=== PATIENT | male | born 1950 | race Caucasian/White ===

== ENCOUNTER 2018-10-02 13:22 | Emergency (ER) | payer OTHER ==
[~2018-10-02] VITALS: Ht 188 cm; Wt 126.1 kg
[~2018-10-02 13:22] MED LIST: ATOR20TA PO; CITA-77 PO; FENO160T8 PO; GEMF600T7 PO; GLIP1TAB38 PO; INSULIN; ISOS20TA49 PO; METF-371 PO; NOR10T PO; PRO20T
[2018-10-02] MEDS ORDERED: SODIUM CHLORIDE 0.9% 1,000 ML IV ONE ×2 (14:23)
[2018-10-02 14:30] LABS: Urine Bacteria NONE SEEN /hpf (None Seen); Urine Blood Negative /uL (Negative); Urine Mucus FEW (None Seen); Urine Specific Gravity 1.032 (1.001-1.035); Urine WBC 1 /hpf (0 - 3)
[2018-10-02] MEDS ORDERED: TAMSULOSIN HYDROCHLORIDE 0.4 MG CAP PO ONE (15:00)
[2018-10-02] MEDS ORDERED: KETOROLAC TROMETH 15 mg/ml 1ML VL IV ONE ×2 (15:00→15:15)
[2018-10-02] MEDS ORDERED: ONDANSETRON HCL 4 MG/2 ML VIAL IV ONE (15:15)
[2018-10-02 15:45] LABS: Basophils # (auto) 0.1 uL; Eosinophils # (auto) 0.1 uL; Lymphocytes % (auto) 18.4 % (10.0-50.0); Mean Corpuscular Volume 86.6 fL (80.0-100.0)
[2018-10-02 15:47] LABS: Eosinophils % (auto) 1.3 % (0.0-7.0); Hematocrit 53.8 % (41.0-53.0); Hemoglobin 18.2 g/dL (13.5-17.5); Lymphocytes # (auto) 1.7 uL; Mean Corpuscular Hemoglobin 29.3 pg (28.0-32.0); Mean Corpuscular Hgb Conc. 33.8 g/dL (32.0-36.0); Monocytes # (auto) 0.6 uL; Monocytes % (auto) 5.9 % (0.0-12.0); Neutrophils % (auto) 73.4 % (37.0-80.0); Nucleated Red Blood Cells % 0.4 %; Platelet Count (auto) 231 10^3/uL (140-450); Red Blood Cells 6.21 10^6/uL (4.5-5.90); White Blood Cell 9.5 10^3/uL (4.4-10.8)
[2018-10-02 16:00] VITALS: BP 132/74
[2018-10-02 16:02] LABS: Albumin 3.2 g/dL (3.4-5.0); Anion Gap 5 (5-15); Blood Urea Nitrogen 10 mg/dL (7-18); Calcium 8.6 mg/dL (8.5-10.1); Carbon Dioxide 27 mmol/L (21-32); Chloride 105 mmol/L (98-107); Glucose 155 mg/dL (74-106); Potassium 3.8 mmol/L (3.5-5.1); Sodium 137 mmol/L (136-145)
[2018-10-02 16:08] LABS: Alanine Aminotransferase 24 U/L (16-61); Alkaline Phosphatase 63 U/L (45-117); Aspartate Aminotransferase 16 U/L (15-37); BUN/Creatinine Ratio 13.3; Bilirubin, Total 0.6 mg/dL (0.2-1.0); GFR African American 133 mL/min; GFR Non-African American 110 mL/min; Total Protein 7.1 g/dL (6.4-8.2)
== END 2018-10-02 17:09 | disposition home or self-care (01) ==
LOC: ER 13:32
DX: E11.65 Type 2 diabetes mellitus with hyperglycemia (principal); E86.0 Dehydration; E78.5 Hyperlipidemia, unspecified; I10 Essential (primary) hypertension; I25.10 Atherosclerotic heart disease of native coronary artery without angina pectoris; Z98.61 Coronary angioplasty status; Z88.8 Allergy status to other drugs, medicaments and biological substances; Z79.899 Other long term (current) drug therapy; Z79.4 Long term (current) use of insulin
CPT/HCPCS: 36415; 74176; 80053; 81001; 84484; 85025; 96361; 96374; 96375; 99284; J1885; J2405; J7030

== ENCOUNTER 2019-08-29 08:28 | Day surgery (SDC) | payer OTHER ==
[~2019-08-29] VITALS: Ht 188 cm; Wt 126.0 kg
[~2019-08-29 08:28] MED LIST changes: +ASPI325T4 PO; -CITA-77 PO; +CLOP75TA28 PO; -FENO160T8 PO; +FURO1TAB33 PO; -GLIP1TAB38 PO; +INSU1INJ14 SC; +LEVEMIR SC; -METF-371 PO; +METF-929 PO; +POTA1TAB61 PO; -PRO20T; +PROP120C42 PO
[2019-08-29] MEDS ORDERED: LIDOCAINE 2%HCL (LOCAL ANESTH.) INJ 20ML MDV ONE (08:56)
[2019-08-29] MEDS ORDERED: IODIXANOL 320MG/ML 100ML BTL IV ONE ×2 (08:56→10:02)
[2019-08-29] MEDS ORDERED: fentaNYL CITRATE 100 MCG/2 ML VL ONE (09:37)
[2019-08-29] MEDS ORDERED: MIDAZOLAM HCL 1MG/1ML-2 ML VIAL ONE ×2 (09:37→10:08)
[2019-08-29] MEDS ORDERED: ANGIOMAX 250 MG VIAL IV ONE ×2 (09:55→10:10)
[2019-08-29] MEDS ORDERED: SODIUM CHL 0.9% 50 ML ONE ×2 (09:55→10:10)
[2019-08-29] MEDS ORDERED: HYDROcodone-ACET 10/325MG TAB PO ONE (11:00)
[2019-08-29] MEDS ORDERED: ACETAMINOPHEN 500 MG TAB PO PRN (11:00)
[2019-08-29] MEDS ORDERED: ONDANSETRON HCL 4 MG/2 ML VIAL IV PRN (11:00)
== END 2019-08-29 13:34 | disposition home or self-care (01) ==
LOC: CATH 08:28
PROVIDERS: ATTEND Internal Medicine
DX: I70.211 Atherosclerosis of native arteries of extremities with intermittent claudication, right leg (principal); I10 Essential (primary) hypertension; E78.5 Hyperlipidemia, unspecified; I25.2 Old myocardial infarction; J44.9 Chronic obstructive pulmonary disease, unspecified; E11.9 Type 2 diabetes mellitus without complications; Z88.8 Allergy status to other drugs, medicaments and biological substances; Z95.5 Presence of coronary angioplasty implant and graft; Z79.82 Long term (current) use of aspirin; Z79.899 Other long term (current) drug therapy; Z98.890 Other specified postprocedural states; Z11.59 Encounter for screening for other viral diseases
CPT/HCPCS: 37228; 75716; C1725; C1760; C1769; C1887; C1894; J0583; J1644; J2250; J3010; J7030; Q9967; U0003; 99152; 99153

== ENCOUNTER 2019-09-26 06:51 | Day surgery (SDC) | payer OTHER ==
[~2019-09-26] VITALS: Ht 190.5 cm; Wt 120.7 kg
[~2019-09-26 06:51] MED LIST changes: -GEMF600T7 PO; -INSULIN
[2019-09-26] MEDS ORDERED: IODIXANOL 320MG/ML 100ML BTL IV ONE ×2 (07:13→07:58)
[2019-09-26] MEDS ORDERED: LIDOCAINE 2%HCL (LOCAL ANESTH.) INJ 20ML MDV ONE (07:13)
[2019-09-26] MEDS ORDERED: ANGIOMAX 250 MG VIAL IV ONE ×2 (07:57→10:15)
[2019-09-26] MEDS ORDERED: MIDAZOLAM HCL 1MG/1ML-2 ML VIAL ONE (07:58)
[2019-09-26] MEDS ORDERED: SODIUM CHL 0.9% 50 ML ONE ×2 (07:58→10:15)
[2019-09-26] MEDS ORDERED: fentaNYL CITRATE 100 MCG/2 ML VL ONE (07:58)
[2019-09-26] MEDS ORDERED: VERAPAMIL 2.5MG/ML INJ 2ML VIAL IV ONE (09:09)
[2019-09-26] MEDS ORDERED: NITROGLYCERIN 50MG/250ML 250 ML IV ONE (09:09)
[2019-09-26] MEDS ORDERED: diphenhdrAMINE HCL 50 MG/1 ML VL ONE (09:47)
[2019-09-26] MEDS ORDERED: ceFAZolin 1GM/50ML 50 ML IV ONE (10:18)
[2019-09-26] MEDS ORDERED: ASPirin 325 MG TAB ONE (10:29)
[2019-09-26] MEDS ORDERED: HYDROmorphone HCL 2 MG/ML VL ONE (10:30)
[2019-11-10] MEDS ORDERED: ASPI-543 PO (16:11)
[2019-11-10] MEDS ORDERED: LOSA25TA38 PO (16:11)
[2019-11-10] MEDS ORDERED: ALBUAER3 IN (16:11)
[2019-11-10] MEDS ORDERED: INSLISPI SC (16:11)
[2019-11-10] MEDS ORDERED: TAMS0.4C36 PO (16:11)
== END 2019-09-26 12:40 | disposition home or self-care (01) ==
LOC: CATH 06:51
PROVIDERS: ATTEND Internal Medicine
DX: I70.212 Atherosclerosis of native arteries of extremities with intermittent claudication, left leg (principal); I10 Essential (primary) hypertension; E78.5 Hyperlipidemia, unspecified; J98.4 Other disorders of lung; I25.2 Old myocardial infarction; F17.210 Nicotine dependence, cigarettes, uncomplicated; E78.00 Pure hypercholesterolemia, unspecified; Z95.5 Presence of coronary angioplasty implant and graft; Z79.899 Other long term (current) drug therapy; Z98.890 Other specified postprocedural states; Z88.0 Allergy status to penicillin; Z11.59 Encounter for screening for other viral diseases
CPT/HCPCS: 36415; 37225; 75716; 82962; 84132; 93005; C1724; C1725; C1760; C1769; C1887; C1894; J0583; J0690; J1170; J1200; J1644; J2250; J3010; J7030; Q9967; U0003; 99152; 99153

== ENCOUNTER → 2019-11-16 | Day surgery (SDC) | payer OTHER ==
[~2019-11-16] VITALS: Ht 188 cm; Wt 120.7 kg
[~2019-11-16] MED LIST changes: +ACCU-CHEK COMFORT CURVE STRIP VI ONE; +ALBUAER3 IN; +ASPI-543 PO; -ASPI325T4 PO; -ATOR20TA PO; +BUPIVACAINE W/ EPINEPH 0.25% INJ 50ML MDV ONE; +HYDROmorphone HCL 2 MG/ML VL IV PRN; +INSLISPI SC; -ISOS20TA49 PO; -LEVEMIR SC; +LIDOCAINE W/ EPINEPHRINE 2% INJ 20ML VIAL ONE; +LOSA25TA38 PO; -METF-929 PO; +MIDAZOLAM HCL 1MG/1ML-2 ML VIAL ONE; +MORPHINE SULF(PF) 0.5MG/ML 10ML VIAL ONE; +ONDANSETRON HCL 4 MG/2 ML VIAL ONE; -PROP120C42 PO; +PROPOFOL 10 MG/ML 20 ML IV ONE; +SODIUM CHLORIDE LOCK 10 ML ONE; +TAMS0.4C36 PO; +VANCOMYCIN HCL 1000 MG VL ONE; +fentaNYL CITRATE 100 MCG/2 ML VL ONE
[2019-11-16] MEDS: ceFAZolin 1GM/50ML 100 ML IV ONE (10:05)
[2019-11-16 11:36] VITALS: BP 152/61
[2019-11-17] MEDS: ceFAZolin 1GM/50ML 100 ML IV ONE (10:05)
== END | disposition home or self-care (01) ==
LOC: SUR 08:20
PROVIDERS: ATTEND Anesthesiology Pain Medicine
DX: M48.062 Spinal stenosis, lumbar region with neurogenic claudication (principal); J44.9 Chronic obstructive pulmonary disease, unspecified; I10 Essential (primary) hypertension; G89.29 Other chronic pain; E11.9 Type 2 diabetes mellitus without complications; Z95.5 Presence of coronary angioplasty implant and graft; Z88.8 Allergy status to other drugs, medicaments and biological substances; Z98.890 Other specified postprocedural states; Z79.899 Other long term (current) drug therapy; Z20.828 Contact with and (suspected) exposure to other viral communicable diseases
CPT/HCPCS: 22869; 22870; 72100; 82962; C1821; J0690; J2250; J2270; J2405; J2704; J3010; J3370; U0003; 76001